=== PATIENT | male | born 1975 | race Caucasian/White ===

== ENCOUNTER 2016-10-24 00:04 | Emergency (ER) | payer SELFPAY ==
[~2016-10-24] VITALS: Ht 175.3 cm; Wt 83.4 kg
[2016-10-24 00:38] VITALS: BP 130/80
== END 2016-10-24 00:52 | disposition home or self-care (01) ==
LOC: ED 00:31
DX: S74.92XA Injury of unspecified nerve at hip and thigh level, left leg, initial encounter (principal); J06.9 Acute upper respiratory infection, unspecified; R20.9 Unspecified disturbances of skin sensation; X58.XXXA Exposure to other specified factors, initial encounter; Y93.89 Activity, other specified; Y92.89 Other specified places as the place of occurrence of the external cause; Y99.8 Other external cause status
CPT/HCPCS: 99281